=== PATIENT | male | born 1960 | race Caucasian/White ===

== ENCOUNTER 2019-11-06 14:29 | Observation (INO) ==
[2019-11-06] MEDS ORDERED: NORMAL SALINE 1,000 ML IV ONE ×3 (15:26→18:06)
--- NOTE | 2019-11-06 15:36 | ERNOTE ---
Syncope ER HPI Stated Complaint: Syncope/Chest Pain/Diarrhea Time Seen by Provider: 11/06/19 15:15 Source: patient, family Exam Limitations: no limitations Immunizations: IMMUNIZATION HX Immunizations Up to Date Yes History of Influenza Vaccine Yes Hx Pneumococcal Vaccination No Allergies/Adverse Reactions: Allergies No Known Allergies Allergy (Verified 11/06/19 14:31) Home Medications: HOME MEDICATIONS NK 08/18/19 [Last Taken Unknown] - History of Present Illness Narrative: Patient is a 59-year-old white male with no history has had diarrhea for the last several days. He also has had poor p.o. intake. Today he was lying in bed felt like he needed to get up to have a bowel movement, became very dizzy and passed out in the bathroom. His found him sitting on the bathroom floor, dazed and out of it. Because his found him in this state she called EMS who brought him to the hospital. Patient denies any cough or shortness of breath, nausea or vomiting, but does state he has little bit of chest pressure. He denies any urinary symptoms and did not bite his tongue or have any bowel or bladder incontinence. Prior Episodes: Present: no prior history, single episode today Review of Systems - Review of Systems Constitutional: Present: weakness, fatigue. Absent: fever, chills EYE: Present: no symptoms reported ENT: Present: no symptoms reported Respiratory: Absent: shortness of breath, cough Cardiology: Present: chest pain, syncope. Absent: palpitations, edema, claudication Gastrointestinal/Abdominal: Present: nausea, diarrhea. Absent: vomiting, constipation, abdominal pain Genitourinary: Present: no symptoms reported Musculoskeletal: Present: no symptoms reported Skin: Present: no symptoms reported Neurological: Present: dizziness/light-headedness, weakness Endocrine: Present: no symptoms reported Medical History (Last Reviewed 11/06/19 @ 15:48 by Nura Izquierdo MD) Colonoscopy planned (Chronic) 04/28/2012, 12/05/2016- tubular adenoma recheck 5 yrs Vitamin B12 deficiency (Chronic) Sleep apnea (Chronic) uses CPAP Hypothyroidism (Chronic) Surgical History: Surgical History (Last Reviewed 11/06/19 @ 15:48 by Nura Izquierdo MD) H/O umbilical hernia repair (Acute) H/O: knee surgery (Acute) left 2006 History of hand surgery (Acute) left hand caught in distribution manager Family History: Family History (Last Reviewed 11/06/19 @ 15:48 by Nura Izquierdo MD) Mother Cancer breast, colon, lung Father Abdominal aneurysm Lymphoma Emphysema lung Uncle Cancer colon Social History: (Last Reviewed 11/06/19 @ 15:48 by Nura Izquierdo MD) Social History: assisted: No Marital status: lives independently: Yes household members: spouse number of children: 2 current occupational status: employed current occupation: Hospital Ward Clerk Highest education level completed: Professional school degre Service: No Tobacco: Smoking Status: Never smoker Alcohol: alcohol intake: current alcohol intake frequency: holiday/special occasion Substance Use: substance use type: does not use Dietary Habits: caffeine: Yes Physical Exam - Physical Exam General Appearance: Present: wd/wn, alert, mild distress, obese Head Exam: Present: normal inspection, no evidence of injury Eye Exam: Normal inspection: bilateral, PERRL: bilateral, EOMI: bilateral Ears, Nose, Throat: Present: normal except -, dry mucous membranes Neck: Present: normal inspection, supple Respiratory: Present: no respiratory distress, normal breath sounds, no accessory muscle use, chest nontender, lungs clear Cardiovascular/Chest: Present: regular rate, rhythm, no murmur, normal peripheral pulses Gastrointestinal/Abdominal: Present: normal bowel sounds, nontender, nondistended, soft, no organomegaly Extremity Exam: Present: normal inspection, non-tender, normal range of motion, no edema Neurological Exam: Present: alert, oriented, normal mood/affect, no motor/sensory deficits, medical records analyst II-XII nml as tested Skin Exam: Present: normal color, warm/dry Progress - Results and Orders Patient's Lab Results:: I have reviewed the patient's lab results. Results and Orders: labs normal except for glucose of 154. - Vital Signs Patient's Vital Signs:: I have reviewed the patient's vital signs. Vital Signs: Vital Signs 11/06/19 14:30 11/06/19 14:37 11/06/19 15:05 Temperature 36.3 C Pulse Rate 88 84 84 Respiratory Rate 16 21 H Blood Pressure 115/67 123/68 O2 Sat by Pulse Oximetry 96 95 11/06/19 15:13 11/06/19 15:26 11/06/19 15:27 Temperature Pulse Rate 102 H 84 Respiratory Rate 14 Blood Pressure 118/60 O2 Sat by Pulse Oximetry 96 - X-Ray X-Ray #1 X-Ray: chest Interpretation: Interp. by me, Reviewed by me X-ray Comments: poor inspiration, no acute changes seen. - Progress/Reassessment Chief Complaint: Syncopal Episode Progress:: Unchanged Progress Note-Subjective: 11/06/19 16:56 Pt. still feeling dizzy, orthostatics repeated and SBP still goes to 88. Pt. denies feeling SOB or having increased cough. O2 sats down to 94% from 96% earlier, lungs remain CTA. 11/06/19 17:37 Pt. does have JAY and sats dropped when laying flat, improves when awakened. Denies SOB or orthopnea. IVF still running, sats in the mid 90's when awake and talking. 11/06/19 19:58 Patient has now had 3 L of normal saline and still is orthostatic with systolic blood pressures dropping into the upper 80s when sitting up. - Transfer of Care Expected Disposition: Admit Plan - Plan Plan: Due to patient's symptomatic dehydration feel he needs to be in the hospital at least overnight for continued IV fluids until his blood pressures stabilize. This was discussed with the patient and his . Case d/w with dr. Hanks and accepts pt. for observation for IVF. Departure Clinical Impression: Syncope and collapse, Dehydration, Viral gastroenteritis, Hyperglycemia - Departure Disposition: Still a patient Condition: Fair Referrals: Nura Izquierdo MD [Primary Care Provider] -
[2019-11-06 15:49] LABS: Hematocrit 44.1 % (42.0-52.0); Hemoglobin 15.5 gm/dL (13.5-18.0); Mean Cell Volume 99.8 fl (78-100); Mean Corpuscular Hemoglobin 35.1 pg (27-31); Mean Corpuscular Hgb Conc 35.1 g/dl (32-36); Mean Platelet Volume 9.5 fl (8-11.3); Neutrophil % 90.6 % (42-75.0); Platelet Count 149 K/mm3 (150-450); Red Blood Count 4.42 M/mm3 (4.7-6.0); Red Cell Distribution Width 12.2 % (11.5-14.0)
[2019-11-06 16:02] LABS: ALT 26 U/L (19-67); AST 20 U/L (0-48); Albumin * 3.5 gm/dl (3.4-5.0); Alkaline Phosphatase * 75 U/L (50-170); Anion Gap 15.6 mmol/L (6.8-13.8); BUN/Creatinine Ratio 18.7 (9.0-21.6); Bilirubin, Total 0.9 mg/dL (0.0-1.1); Blood Urea Nitrogen 20 mg/dL (6-23); Ca. Corrected For Albumin 8.4 mg/dL (8.4-10.2); Calcium * 8.3 mg/dL (7.9-10.9); Carbon Dioxide 24.9 mmol/L (24-32.6); Chloride 107 mmol/L (97-106); Glucose * 154 mg/dL (70-110); Potassium 3.5 mmol/L (3.4-4.6); Sodium 144 mmol/L (132-142); Total Protein 6.7 gm/dL (6.2-8.2); Troponin I Less than 0.017 ng/mL (0.00-0.10)
[2019-11-06] MEDS: RINGER'S SOLUTION,LACTATED 1,000 ML IV PRN (20:22)
--- NOTE | 2019-11-06 22:14 | HP ---
Chief Complaint - Chief Complaint Date of Service: 11/06/19 Time of Service: 21:57 Chief Complaint: syncope History of Present Illness: Ted Swain is a 59-year-old white male with past medical history of hypothyroidism, obstructive sleep apnea, who was admitted on 11/06/2019 because of a syncopal attack. On the day of patient's admission the patient started having diarrhea, big volume associated with nausea. He said that he has had abo ut 3 diarrheal episodes and he was going to go bathroom for another bowel movement where he got dizzy and passed out. The called the EMS and he was brought to our emergency room. In the emergency room his white blood cell count was normal, hemoglobin was 15.5, sodium was 145, chloride was 107, BUN/creatinine ratio of 20/1.07. His random blood sugar was 154. He was found to be orthostatic with systolic blood pressure falling down to the 80s despite receiving aggressive IV fluid replacement. He was then admitted for observation and continuance of IV fluids. He denied any vomiting, fever or chills, urinary symptoms, biting of his tongue or any bowel or bladder incontinence. . Medical History (Last Reviewed 11/06/19 @ 21:56 by Camilla Alfaro RN) Colonoscopy planned (Chronic) 04/28/2012, 12/05/2016- tubular adenoma recheck 5 yrs Vitamin B12 deficiency (Chronic) Sleep apnea (Chronic) uses CPAP Hypothyroidism (Chronic) Surgical History: Surgical History (Last Reviewed 11/06/19 @ 21:56 by Camilla Alfaro RN) H/O umbilical hernia repair (Acute) H/O: knee surgery (Acute) left 2006 History of hand surgery (Acute) left hand caught in tyre fitter Family History: Family History (Last Reviewed 11/06/19 @ 21:56 by Camilla Alfaro RN) Mother Cancer breast, colon, lung Father Abdominal aneurysm Lymphoma Emphysema lung Uncle Cancer colon Social History: (Last Reviewed 11/06/19 @ 21:56 by Camilla Alfaro RN) Social History: group home: No Marital status: lives independently: Yes household members: spouse number of children: 2 current occupational status: employed 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 Absent: Chills, Fever EENTM: Absent: Blurred Vision Respiratory: Absent: Cough, Shortness of Breath, Orthopnea Cardiac: Absent: Chest Pain, Edema, Palpitations Abdominal: Present: Nausea, Diarrhea. Absent: Vomiting, Hematemesis, Abdominal Pain Genitourinary: Absent: Urgency, Frequency Musculoskeletal: Absent: Joint Pain Neurological: Absent: Headache Skin: Absent: Lesions, Rash Misc: All systems neg except as marked Immunizations: IMMUNIZATION HX Immunizations Up to Date Yes History of Influenza Vaccine Yes Hx Pneumococcal Vaccination No Allergies/Adverse Reactions: Allergies Allergy/AdvReac Type Severity Reaction Status Date / Time No Known Allergies Allergy Verified 11/06/19 14:31 Home Medications: HOME MEDICATIONS NK 08/18/19 [Last Taken Unknown] Exam - Exam Vital Signs: Vital Signs - Last Taken Temp 36.3 C 11/06/19 14:30 Pulse 72 11/06/19 21:34 Resp 18 11/06/19 21:34 BP 113/81 11/06/19 21:34 Pulse Ox 96 11/06/19 21:34 Constitutional: Present: Alert, Oriented x3, Cooperative, Obese ENT Exam: Present: hearing grossly normal Eye Exam: bilateral eye: normal inspection, PERRL, EOMI Neck: Present: supple. Absent: lymphadenopathy (R), lymphadenopathy (L) Respiratory: Present: normal breath sounds, No rales, No wheezing Cardiovascular/Chest: Present: regular rate, rhythm, no JVD, no murmur Abdomen: Present: Normal bowel sounds, soft, nontender, nondistended Extremity: Present: no pedal edema, no calf tenderness Diagnostic Studies: Abnormal Lab Results 11/06/19 11/06/19 Range/Units 14:44 14:44 RBC 4.42 L (4.7-6.0) M/mm3 MCH 35.1 H (27-31) pg Plt Count 149 L (150-450) K/mm3 Immature Gran % (Auto) 0.80 H (0.001-0.429) % Immature Gran # (Auto) 0.08 H (0.000-0.0310) K/mm3 Neutrophils % 90.6 H (42-75.0) % Lymphocytes % 4.0 L (20-51) % Neutrophils # 9.0 H (1.3-6.0) K/mm3 Lymphocytes # 0.40 L (1.5-3.5) k/mm3 Sodium 144 H (132-142) mmol/L Plasma Sodium 145 H (130-142) mmol/L Chloride 107 H (97-106) mmol/L Anion Gap 15.6 H (6.8-13.8) mmol/L Random Glucose 154 H (70-110) mg/dL Laboratory Results WBC 10.0 K/mm3 (4.0-10.5) 11/06/19 14:44 RBC 4.42 M/mm3 (4.7-6.0) L 11/06/19 14:44 Hgb 15.5 gm/dL (13.5-18.0) 11/06/19 14:44 Hct 44.1 % (42.0-52.0) 11/06/19 14:44 MCV 99.8 fl (78-100) 11/06/19 14:44 MCH 35.1 pg (27-31) H 11/06/19 14:44 MCHC 35.1 g/dl (32-36) 11/06/19 14:44 RDW 12.2 % (11.5-14.0) 11/06/19 14:44 Plt Count 149 K/mm3 (150-450) L 11/06/19 14:44 MPV 9.5 fl (8-11.3) 11/06/19 14:44 Immature Gran % (Auto) 0.80 % (0.001-0.429) H 11/06/19 14:44 Immature Gran # (Auto) 0.08 K/mm3 (0.000-0.0310) H 11/06/19 14:44 Neutrophils % 90.6 % (42-75.0) H 11/06/19 14:44 Lymphocytes % 4.0 % (20-51) L 11/06/19 14:44 Monocytes % 3.9 % (0.0-9) 11/06/19 14:44 Eosinophils % 0.4 % (0.0-3.0) 11/06/19 14:44 Basophils % 0.3 % (0.0-1.0) 11/06/19 14:44 Nucleated RBC % 0.0 k/mm3 (0-1) 11/06/19 14:44 Neutrophils # 9.0 K/mm3 (1.3-6.0) H 11/06/19 14:44 Lymphocytes # 0.40 k/mm3 (1.5-3.5) L 11/06/19 14:44 Monocytes # 0.4 k/mm3 (0.0-1.0) 11/06/19 14:44 Eosinophils # 0.0 k/mm3 (0.0-0.7) 11/06/19 14:44 Absolute Basophils 0.0 k/mm3 (0.0-0.1) 11/06/19 14:44 Sodium 144 mmol/L (132-142) H 11/06/19 14:44 Plasma Sodium 145 mmol/L (130-142) H 11/06/19 14:44 Potassium 3.5 mmol/L (3.4-4.6) 11/06/19 14:44 Chloride 107 mmol/L (97-106) H 11/06/19 14:44 Carbon Dioxide 24.9 mmol/L (24-32.6) 11/06/19 14:44 Anion Gap 15.6 mmol/L (6.8-13.8) H 11/06/19 14:44 BUN 20 mg/dL (6-23) 11/06/19 14:44 Creatinine 1.07 mg/dL (0.4-1.4) 11/06/19 14:44 Est GFR (Non-Af Amer) 75 mL/min (60-130) 11/06/19 14:44 BUN/Creatinine Ratio 18.7 (9.0-21.6) 11/06/19 14:44 Random Glucose 154 mg/dL (70-110) H 11/06/19 14:44 Calcium 8.3 mg/dL (7.9-10.9) 11/06/19 14:44 Calcium Adj for Albumin 8.4 mg/dL (8.4-10.2) 11/06/19 14:44 Total Bilirubin 0.9 mg/dL (0.0-1.1) 11/06/19 14:44 AST 20 U/L (0-48) 11/06/19 14:44 ALT 26 U/L (19-67) 01/25/20 14:44 Alkaline Phosphatase 75 U/L (50-170) 11/06/19 14:44 Troponin I Less than 0.017 ng/mL (0.00-0.10) 11/06/19 14:44 Total Protein 6.7 gm/dL (6.2-8.2) 11/06/19 14:44 Albumin 3.5 gm/dl (3.4-5.0) 11/06/19 14:44 Assessment/Plan - Narrative Narrative: Ted is a 59-year-old male who was admitted for syncope and diarrhea. His syncopal attack is likely due to orthostasis from his diarrhea, rule out situational syncope from straining on defecation. We will we will continue with IV fluid replacement overnight and discharge planning in the morning once he exhibits no orthostatic changes. - Assessment/Plan (1) Syncope and collapse Problem: Acute (2) Dehydration Problem: Acute (3) Viral gastroenteritis Problem: Acute (4) Sleep apnea Problem: Chronic (5) Hypothyroidism Problem: Chronic
[2019-11-07] MEDS: RINGER'S SOLUTION,LACTATED 1,000 ML IV PRN ×2 (01:45→07:00)
[2019-11-07 07:39] LABS: Anion Gap 12.3 mmol/L (6.8-13.8); BUN/Creatinine Ratio 14.5 (9.0-21.6); Calcium * 7.8 mg/dL (7.9-10.9); Carbon Dioxide 25.1 mmol/L (24-32.6); Estimated Creat Clear 93.5; Potassium 3.4 mmol/L (3.4-4.6)
--- NOTE | 2019-11-07 11:13 | DS ---
(1) Syncope and collapse Problem: Resolved (2) Dehydration Problem: Resolved (3) Viral gastroenteritis Problem: Acute (4) Sleep apnea Problem: Chronic (5) Hypothyroidism Problem: Chronic Date of Discharge:: 11/07/19 Hospital Course: Ted Swain is a 59-year-old white male with past medical history of hypothyroidism, obstructive sleep apnea, who was admitted on 11/06/2019 because of a syncopal attack. On the day of patient's admission the patient started having diarrhea, big volume associated with nausea. He said that he has had about 3 diarrheal episodes and he was going to go bathroom for another bowel movement where he got dizzy and passed out. The called the EMS and he was brought to our emergency room. In the emergency room his white blood cell count was normal, hemoglobin was 15.5, sodium was 145, chloride was 107, BUN/creatinine ratio of 20/1.07. His random blood sugar was 154. He was found to be orthostatic with systolic blood pressure falling down to the 80s despite receiving aggressive IV fluid replacement. He was then admitted for observation and continuance of IV fluids. He denied any vomiting, fever or chills, urinary symptoms, biting of his tongue or any bowel or bladder incontinence. He had one more episode fo diarrhea last night but has not had another one since then. Since this morning the patient has been urinating a lot as per patient. We will discharge patient today ingris is no longer orthostatic ( laying- 129/79, sitting 123/69, standing 118/73). He was encouraged to increase oral fluids. He has no home medications. Procedures Performed: none Results and Findings: Lab Pending Results 11/06/19 14:44: WBC 10.0, RBC 4.42 L, Hgb 15.5, Hct 44.1, MCV 99.8, MCH 35.1 H, MCHC 35.1, RDW 12.2, Plt Count 149 L, MPV 9.5, Immature Gran % (Auto) 0.80 H, Immature Gran # (Auto) 0.08 H, Neutrophils % 90.6 H, Lymphocytes % 4.0 L, Monocytes % 3.9, Eosinophils % 0.4, Basophils % 0.3, Nucleated RBC % 0.0, Neutrophils # 9.0 H, Lymphocytes # 0.40 L, Monocytes # 0.4, Eosinophils # 0.0, Absolute Basophils 0.0 11/06/19 14:44: Sodium 144 H, Plasma Sodium 145 H, Potassium 3.5, Chloride 107 H, Carbon Dioxide 24.9, Anion Gap 15.6 H, BUN 20, Creatinine 1.07, Est GFR (Non- Af Amer) 75, BUN/Creatinine Ratio 18.7, Random Glucose 154 H, Calcium 8.3, Calcium Adj for Albumin 8.4, Total Bilirubin 0.9, AST 20, ALT 26, Alkaline Phosphatase 75, Troponin I Less than 0.017, Total Protein 6.7, Albumin 3.5 11/07/19 07:07: Sodium 143 H, Plasma Sodium 143 H, Potassium 3.4, Chloride 109 H, Carbon Dioxide 25.1, Anion Gap 12.3, BUN 12, Creatinine 0.83, Est GFR (Non-Af Amer) 100 D, BUN/Creatinine Ratio 14.5, Random Glucose 115 H, Calcium 7.8 L Discharge Location: Home Disposition: Home self-care Condition: Stable Discharge Activity: Activity as tolerated Discharge Diet: Low fat/chol Additional Patient Instructions (free text): Folow up with PCP in 1 week. Encourage to increase oral fluids. Complete Home Medications List: Complete Home Medication List: NK 08/18/19
[2019-11-07 12:50] VITALS: BP 136/68
== END 2019-11-07 13:00 | disposition home or self-care (01) ==
LOC: ER 14:29 → MS 14:29
PROVIDERS: ADMIT Internal Medicine; ATTEND Internal Medicine
DX: E86.0 Dehydration; A08.4 Viral intestinal infection, unspecified; E03.9 Hypothyroidism, unspecified; R55 Syncope and collapse; G47.30 Sleep apnea, unspecified
CPT/HCPCS: 36415; 71010; 71045; 80048; 80053; 84484; 85025; 93005; 94660; 96360; 96361; 99285; G0378